=== PATIENT | female | born 1995 | race African-American/Black ===

== ENCOUNTER 2020-04-29 13:44 | Emergency (ER) | payer OTHER, SELFPAY ==
[2020-04-29 14:00] VITALS: BP 105/72; PULSE 62; RESP 18; TEMP 36.9; O2SAT 99; BMI 25.8
--- NOTE | 2020-04-29 14:11 | PC.NURSE ---
pt refused strep swab. Pt states I just want to skip that and get treated, I know I have it, I feel like shit will notify STEVEN COTO
--- NOTE | 2020-04-29 14:40 | HMH.EDGENADL ---
ED Disposition Clinical Impression: Strep pharyngitis Disposition: Home, Self-Care Condition on Discharge: Good Instructions: DI for Acute Pain -- Adult Prescriptions: Azithromycin 250 mg PO DAILY 5 Days #6 tab Transmission Status: Pending to [id number] Referrals: Provider,Referral, [Primary Care Provider] - - Critical Care Critical Care Time: No Attestation: On 04/29/20, the high probability of a clinically significant, sudden or life threatening deterioration of the following system(s) required my full and direct attention, intervention and personal management. The time I documented below is in addition to time spent performing reported procedures but includes the following listed in this critical care notation. Medical Decision Making - Medical Records Medical records reviewed: Yes: I reviewed the patient's medical records. - Amol Inquiry Pt receiving controlled substance: No Vital Signs: 04/29/20 14:00 Temperature 98.4 F Temperature Source Oral Pulse Rate [Right Radial] 62 Respiratory Rate 18 Blood Pressure [Right Arm] 105/72 L Blood Pressure Mean [Right Arm] 83 Blood Pressure Source [Right Arm] Automatic Cuff Blood Pressure Position [Right Arm] Sitting 02 Sat by Pulse Oximetry 99 Oxygen Delivery Method Room Air - Lab Data Lab results reviewed: Yes: I reviewed the patient's lab results. Orders (Tests/Meds): ED MEDICATIONS Discontinued Medications Generic Name Dose Route Start Last Admin Trade Name Mia PRN Reason Stop Dose Admin Ceftriaxone Sodium 1 gm 04/29/20 14:39 Rocephin 1gm Vial IM 04/29/20 14:40 ONCE ONE Protocol Lidocaine HCl 0 ml 04/29/20 14:39 Lidocaine 1% 10ml Mdv IM 04/29/20 14:40 ONCE ONE ORDERS Category Date Time Status Rapid Strep Scrn Group A [Strep Scrn Group A (Rapid)] Lab 04/29/20 14:10 Ordered Stat General Adult HPI - General Chief complaint: PAIN Stated complaint: sore throat Time Seen by Provider: 04/29/20 13:44 Mode of Arrival: Ambulatory Source of Information: Patient Limitations: No Limitations Description of Symptoms (Recalled from ER Triage Doc. by RN): Pt c/o sore throat x2 days. Pt reports thinks she has strep throat, states she gets it frequently - History of Present Illness HPI narrative: 25 female comes in with sore throat fever and inflamed lymph nodes. She states that this is similar to her previous strep reactions and she feels like she has strep. Otherwise no other symptoms and patient is afebrile here in the ED. Patient denies any headache. Patient denies any cough or shortness of breath. Onset (ago): day(s) - Related Data Previous Rx's Medication Instructions Recorded Albuterol Sulfate [Albuterol HFA 2 puffs IH Q6HP PRN #1 inh 12/30/19 Inhaler] Azithromycin [Azithromycin 500mg 500 mg PO DAILY #3 tab 12/30/19 Tab] methylPREDNISolone [Medrol 4mg 4 mg PO DIRECTED #21 tab 12/30/19 tab] Azithromycin 250 mg PO DAILY 5 Days #6 tab 04/29/20 Allergies Allergy/AdvReac Type Severity Reaction Status Date / Time No Known Allergies Allergy Verified 06/10/19 00:14 [facility] History - Hepatitis A Screen Drug use history?: No High risk sexual behaviors?: No History of sexually transmitted infection?: No Currently employed?: No Childcare worker?: No Do you have indoor plumbing?: Yes Do you have electricity?: Yes Attestation statement:: This patient has been screened for Hepatitis A risk factors. I have reviewed the patient's past medical history: Yes Medical History: Denies:: Cancer, Diabetes Mellitus Type 1, Diabetes Mellitus Type 2, MRSA Laterality Cases: Bilateral: Tonsillectomy Amputation: No - Social History Smoking Status: Never smoker Alcohol Intake: never Occupational Status: unemployed ROS Obtained: Yes All systems reviewed & no additional complaints - Constitutional Constitutional: Reports system reviewed and no additional
[2020-04-29 15:12] VITALS: BP 120/85; PULSE 85; RESP 20; TEMP 36.8; O2SAT 98
== END 2020-04-29 15:12 | disposition home or self-care (01) ==
PROVIDERS: Emergency Provider Family Medicine
DX: J02.0 Streptococcal pharyngitis (principal); Z90.09 Acquired absence of other part of head and neck
CPT/HCPCS: 96372; 99281; 99282

== ENCOUNTER 2020-07-25 09:23 | Emergency (ER) | payer OTHER, SELFPAY ==
[2020-07-25 09:25] VITALS: BP 123/79; PULSE 74; RESP 18; TEMP 36.6; O2SAT 98; BMI 24.2
--- NOTE | 2020-07-25 09:45 | XR_ITS ---
PROCEDURE: XR CHEST PORTABLE CLINICAL HISTORY: cough COMPARISON: CR Chest from 06/10/2019 FINDINGS: The cardiomediastinal silhouette and pulmonary vascularity are within normal limits. The lungs are clear without infiltrates, suspicious nodules, or pleural effusions. The there are bilateral nipple rings in place. No acute bony findings. IMPRESSION: No acute findings. Dictated by: Toni Persaud MD 07/25/2020 12:01 Toni Persaud MD in [place] 07/25/2020 12:01
--- NOTE | 2020-07-25 09:55 | ECG_ITS ---
APPROVED REPORT Exam: Resting ECG HR:56 bpm ECG Measurements Heart Rate 56 AXES OK 184 P 67 QRSd 78 QRS 63 QT 438 T 50 QTc 422 <Conclusion> Sinus bradycardia with sinus arrhythmia Otherwise normal ECG Electronically signed by : Satinder Child, 07/27/2020 06:28:40
[2020-07-25 10:06] VITALS: BP 119/79; PULSE 66; RESP 16; O2SAT 98
[2020-07-25 10:18] VITALS: PULSE 75; PULSE 84
[2020-07-25 10:49] VITALS: BP 125/71; PULSE 70; RESP 15; O2SAT 97
--- NOTE | 2020-07-25 11:27 | HMH.EDGENADL ---
ED Disposition Clinical Impression: Asthma with exacerbation, Acute exacerbation of chronic bronchitis Disposition: Home, Self-Care Condition on Discharge: Good Instructions: DI for Chronic Bronchitis Prescriptions: Albuterol Sulfate [Proair Hfa] 8.5 gm IH BID #1 [id number].[email or web address] Transmission Status: Pending to [facility]/pharmacy #[id number] Referrals: PCP,No [Primary Care Provider] - - Critical Care Critical Care Time: No Attestation: On 07/25/20, the high probability of a clinically significant, sudden or life threatening deterioration of the following system(s) required my full and direct attention, intervention and personal management. The time I documented below is in addition to time spent performing reported procedures but includes the following listed in this critical care notation. Medical Decision Making - Medical Records Medical records reviewed: Yes: I reviewed the patient's medical records. - Amol Inquiry Pt receiving controlled substance: No Vital Signs: 07/25/20 09:25 07/25/20 10:06 07/25/20 10:18 Temperature 97.9 F Temperature Source Oral Pulse Rate 75 Pulse Rate [Left Radial] 74 66 Respiratory Rate 18 16 Blood Pressure [Right Arm] 123/79 119/79 Blood Pressure Mean [Right Arm] 93 92 Blood Pressure Source [Right Arm] Automatic Cuff Automatic Cuff Blood Pressure Position [Right Arm] Sitting Sitting 02 Sat by Pulse Oximetry 98 98 Oxygen Delivery Method Room Air Room Air 07/25/20 10:49 Temperature Temperature Source Pulse Rate Pulse Rate [Left Radial] 70 Respiratory Rate 15 Blood Pressure [Right Arm] 125/71 Blood Pressure Mean [Right Arm] 89 Blood Pressure Source [Right Arm] Automatic Cuff Blood Pressure Position [Right Arm] Sitting 02 Sat by Pulse Oximetry 97 Oxygen Delivery Method Room Air Orders (Tests/Meds): ED MEDICATIONS Discontinued Medications Generic Name Dose Route Start Last Admin Trade Name Freq PRN Reason Stop Dose Admin Albuterol Sulfate 2.5 mg 07/25/20 10:03 07/25/20 10:18 Albuterol 0.083% 2.5mg/3ml Neb IH 07/25/20 10:04 2.5 mg ONCE ONE Administration Diphenhydramine HCl 25 mg 07/25/20 09:45 07/25/20 09:59 Benadryl 25mg Capsule PO 07/25/20 09:46 25 mg ONCE ONE Administration Ibuprofen 800 mg 07/25/20 09:45 07/25/20 09:59 Motrin 400mg Tablet PO 07/25/20 09:46 800 mg ONCE ONE Administration ORDERS Category Date Time Status XR chest portable Stat Exams 07/25/20 09:45 Taken EKG Request [ECG Request by /Kenneth] Stat Y 07/25/20 09:45 Ordered - ECG Data Tracing #1 Bradycardic rate of 56 bpm, normal ND and QTc interval. No ST changes. Final interpretation was sinus bradycardia with no significant changes ECG initial impression date: 07/25/20 ECG initial impression time: 11:30 - Reevaluation(s) Time: 11:32 Reevaluation #1: On reevaluation, patient is feeling much better. She remains did not have any respiratory distress. EKG does not show any significant changes. Patient will be provided albuterol inhaler for bronchitis. She needs to follow-up with her PCP in 24 hours. Given strict return precautions. Verbalized understanding. Medical Decision Narrative: 25-year-old female presented to the emergency department with some difficulty breathing. Patient symptoms are consistent with chronic bronchitis. She has no respiratory distress. Patient is not having any hypoxia. Patient is PERC negative. Low risk for acute coronary syndrome based on heart score. Basic work-up will be initiated. General Adult HPI - General Chief complaint: Shortness of Breath/Dyspnea Stated complaint: asthma, pain in chest Time Seen by Provider: 07/25/20 09:30 Mode of Arrival: Ambulatory Limitations: No Limitations Description of Symptoms (Recalled from ER Triage Doc. by RN): c/o of SOA that has increased today with a headache. Says when she takes a deep breath she get some chest discomfort - History of Present
[2020-07-25 12:45] VITALS: BP 125/71; PULSE 70; RESP 15; TEMP 36.7; O2SAT 97
== END 2020-07-25 12:51 | disposition home or self-care (01) ==
PROVIDERS: Emergency Provider Emergency Medicine
DX: J45.901 Unspecified asthma with (acute) exacerbation (principal); J20.9 Acute bronchitis, unspecified
CPT/HCPCS: 71045; 93005; 99283

== ENCOUNTER 2020-12-13 14:15 | Emergency (ER) | payer OTHER, SELFPAY ==
[2020-12-13 14:17] VITALS: BP 112/70; PULSE 84; RESP 16; TEMP 36.6; O2SAT 98; BMI 25.0
[2020-12-13 14:28] VITALS: BP 140/66; PULSE 64; O2SAT 100
--- NOTE | 2020-12-13 14:29 | XR_ITS ---
PROCEDURE: XR CHEST 2V CLINICAL HISTORY: sob asthma COMPARISON: CR Chest from 06/10/2019 CR XR CHEST PORTABLE from 07/25/2020 FINDINGS: The cardiomediastinal silhouette and pulmonary vascularity are within normal limits. The lungs are clear without infiltrates, suspicious nodules, or pleural effusions. No acute bony abnormalities. IMPRESSION: No acute findings. Dictated by: Toni Persaud MD 12/13/2020 15:13 Toni Persaud MD in [place] 12/13/2020 15:13
--- NOTE | 2020-12-13 16:42 | HMH.EDGENADL ---
ED Disposition Clinical Impression: Asthma with exacerbation Qualifiers: Asthma severity: mild Asthma persistence: intermittent Qualified Code(s): J45.21 - Mild intermittent asthma with (acute) exacerbation Disposition: Home, Self-Care Condition on Discharge: Good Instructions: DI for Asthma -- Adult Additional Instructions: Albuterol inhaler for shortness of breath or wheezing. Additional instructions for CHEST PAIN: See your physician as soon as possible for further evaluation. Return immediately if worsening chest pain, vomiting, shortness of breath, fever, coughing of blood. Prescriptions: Albuterol Sulfate [Proventil-HFA 90mcg/puff Inh] 1 - 2 puffs IH Q6HP PRN #1 inh PRN Reason: Wheezing Prescription Printed Referrals: Ross Smiley [Primary Care Provider] - - Critical Care Critical Care Time: No Attestation: On 12/13/20, the high probability of a clinically significant, sudden or life threatening deterioration of the following system(s) required my full and direct attention, intervention and personal management. The time I documented below is in addition to time spent performing reported procedures but includes the following listed in this critical care notation. Medical Decision Making - Medical Records Medical records reviewed: Yes: I reviewed the patient's medical records. MR Comment: Reviewed emergency department visits. She has only had 1 visit for asthma in the past couple of years, which was last year. She was given a prescription for an albuterol inhaler. I do not see any systemic steroids or shots. - Amol Inquiry Pt receiving controlled substance: No Vital Signs: 12/13/20 14:28 Pulse Rate [Right Radial] 64 Blood Pressure [Right Arm] 140/66 Blood Pressure Mean [Right Arm] 90 Blood Pressure Source [Right Arm] Automatic Cuff Blood Pressure Position [Right Arm] Sitting 02 Sat by Pulse Oximetry 100 Oxygen Delivery Method Room Air Orders (Tests/Meds): ED MEDICATIONS Discontinued Medications Generic Name Dose Route Start Last Admin Trade Name Freq PRN Reason Stop Dose Admin Albuterol/Ipratropium 3 ml 12/13/20 16:49 Albuterol/Ipratropium 3 Ml Neb IH 12/13/20 16:50 ONCE ONE - Radiology Data #1 Image(s): Chest Image Reviewed: Yes I have reviewed radiologist's interpretation PROCEDURE: XR CHEST 2V CLINICAL HISTORY: sob asthma COMPARISON: CR Chest from 06/10/2019 CR XR CHEST PORTABLE from 07/25/2020 FINDINGS: The cardiomediastinal silhouette and pulmonary vascularity are within normal limits. The lungs are clear without infiltrates, suspicious nodules, or pleural effusions. No acute bony abnormalities. IMPRESSION: No acute findings. Dictated by: Toni Persaud MD 12/13/2020 15:13 Toni Persaud MD in [place] 12/13/2020 15:13 Medical Decision Narrative: PULMONARY EMBOLISM RULE-OUT CRITERIA: 1. Age > 49? No 2. Pulse greater than 99/min? No 3. Room air pulse ox <95%? No 4. Hemoptysis? No 5. On estrogen? No 6. Prior diagnosis of DVT or PE? No 7. Surgery or trauma requiring endotracheal intubation or hospitalization in past 4 wks? No 8. Unilateral leg swelling? No The patient is low risk and the PERC score is 0, indicating no further workup for pulmonary embolism is necessary. Discussed treatment. The patient is wanting just a breathing treatment and an inhaler, albuterol. She does not want prescription for her other inhalers. She does not want systemic steroids. General Adult HPI - General Stated complaint: Chest Tightness from Asthma Time Seen by Provider: 12/13/20 16:42 - History of Present Illness HPI narrative: The patient appears angry and is confrontation on my arrival. Patient says she is having an asthma attack. She says that she has a history of asthma and has been here numerous times for it just check my record . She says I just need an inhaler or a breathing treatment. If I have
[2020-12-13 17:06] VITALS: BP 127/62; PULSE 62; RESP 18; TEMP 36.7; O2SAT 100
[2020-12-13 17:09] VITALS: PULSE 87; PULSE 89
== END 2020-12-13 17:29 | disposition home or self-care (01) ==
PROVIDERS: Emergency Provider Emergency Medicine; PCP Plastic Surgery
DX: J45.901 Unspecified asthma with (acute) exacerbation (principal)
CPT/HCPCS: 71046; 99282